=== PATIENT | female | born 1960 | race Caucasian/White ===

== ENCOUNTER 2018-12-19 14:54 | Emergency (ER) | payer MEDICARE, OTHER ==
[2018-12-19 15:42] LABS: BASOPHILS % (AUTO) 0.4 %; EOSINOPHILS # (AUTO) 0.1 10^3/uL (0.0-0.7); EOSINOPHILS % (AUTO) 1.6 %; HGB - HEMOGLOBIN 13.8 g/dL (12.0-16.0); LYMPHOCYTES # (AUTO) 3.1 10^3/uL (1.5-3.5); LYMPHOCYTES % (AUTO) 34.3 %; MEAN CORPUSCULAR HEMOGLOBIN 29.4 pg (27.0-31.0); MEAN CORPUSCULAR HGB CONC 33.3 g/dL (32.0-36.0); MEAN CORPUSCULAR VOLUME 88.4 fL (81.0-99.0); MEAN PLATELET VOLUME 10.7 fL (7.9-10.8); MONOCYTES # (AUTO) 0.4 10^3/uL (0.0-1.0); MONOCYTES % (AUTO) 4.2 %; NEUTROPHILS # (AUTO) 5.4 10^3/uL (1.5-6.6); NEUTROPHILS % (AUTO) 59.5 %; PLT - PLATELET COUNT 209 10^3/uL (130-450); RED BLOOD COUNT 4.69 10^6/uL (4.20-5.40); RED CELL DISTRIBUTION WIDTH 14.1 % (12.0-15.0)
[2018-12-19 15:43] LABS: ALBUMIN 4.6 g/dL (3.2-5.5); ALBUMIN/GLOBULIN RATIO 1.1 (1.0-2.2); BILIRUBIN,TOTAL 0.5 mg/dL (0.2-1.0); CALCIUM 9.4 mg/dL (8.5-10.3); CREATININE 0.6 mg/dL (0.4-1.0); TOTAL PROTEIN 8.8 g/dL (6.7-8.2)
--- NOTE | 2018-12-19 16:08 | ED Physician Documentation ---
PD HPI ABD PAIN - Stated complaint Stated Complaint: ABD PX - Chief complaint Chief Complaint: Abd Pain - History obtained from History obtained from: Patient - History of Present Illness Timing - onset: Enter time (1100), Today Timing - duration: Hours Timing - details: Gradual onset, Still present Quality: Sharp, Fullness/distended, Pain Location: All over / everywhere Radiation: Chest, Lower back Improved by: Laying still Worsened by: Moving, Breathing, Position, Palpation Associated symptoms: Nausea. No: Vomiting, Diarrhea, Constipation Similar symptoms before: Other (The pain is worse than appendix, diverticulitis and gallbladder and on par with kidney stone except that this hurts to move around.) Recently seen: Not recently seen - Additional information Additional information: 58-year-old female awoke this morning with what she thought was a severe gas pain she was into the bathroom and did not get relief of that pain is progressively worsened she has pain with any movement and with any palpation. She has some nausea she has not vomited. Review of Systems Constitutional: denies: Fever Eyes: denies: Decreased vision Ears: reports: Tinnitus/ringing. denies: Ear pain Nose: denies: Rhinorrhea / runny nose, Congestion Throat: denies: Sore throat Cardiac: denies: Chest pain / pressure, Palpitations Respiratory: denies: Dyspnea, Cough GI: reports: Abdominal Pain, Nausea, Vomiting. denies: Constipation, Diarrhea : denies: Dysuria, Frequency Skin: denies: Rash Musculoskeletal: denies: Neck pain, Back pain, Extremity pain Neurologic: denies: Generalized weakness, Focal weakness, Numbness PD PAST MEDICAL HISTORY - Past Medical History Cardiovascular: None Respiratory: None Endocrine/Autoimmune: None GI: Diverticulitis : None HEENT: None Psych: Depression, Anxiety, Post traumatic stress disorder Musculoskeletal: None Derm: None - Past Surgical History Past Surgical History: Yes General: Cholecystectomy, Appendectomy - Present Medications Home Medications: Ambulatory Orders Medication Instructions Recorded Confirmed Alprazolam [Xanax] 1 tab PO TID PRN 12/19/18 12/19/18 Ondansetron Odt [Zofran Odt] 2 tab PO TID PRN 12/19/18 12/19/18 Prazosin [Minipress] 1 tab PO QPM 12/19/18 12/19/18 Verapamil HCl [Verapamil ER] 1 tab PO OAW 12/19/18 12/19/18 Verapamil HCl [Verapamil ER] 1 tab PO QPM 12/19/18 12/19/18 oxyCODONE [Roxicodone] 1 tab PO TID PRN 12/19/18 12/19/18 - Allergies Allergies/Adverse Reactions: Allergies Allergy/AdvReac Type Severity Reaction Status Date / Time ampicillin Allergy Intermediate Rash Verified 12/19/18 15:02 - Social History Does the pt smoke?: No Smoking Status: Never smoker Does the pt drink ETOH?: Yes Does the pt have substance abuse?: No PD ED PE NORMAL - Vitals Vital signs reviewed: Yes (hypertensive ) - General General: Alert and oriented X 3, No acute distress, Well developed/nourished - HEENT HEENT: Atraumatic, PERRL, EOMI - Neck Neck: Supple, no meningeal sign, No bony TTP - Cardiac Cardiac: RRR, No murmur - Respiratory Respiratory: No respiratory distress, Clear bilaterally - Abdomen Abdomen: Soft, Other (obese with general tenderness with referred tenderness as well. ) - Back Back: No CVA TTP, No spinal TTP - Derm Derm: Normal color, Warm and dry, No rash - Extremities Extremities: No deformity, No edema - Neuro Neuro: Alert and oriented X 3, paper carrier 2-12 intact, No motor deficit, No sensory deficit, Normal speech Eye Opening: Spontaneous Motor: Obeys Commands Verbal: Oriented GCS Score: 15 - Psych Psych: Normal mood, Normal affect Results - Vitals Vitals: Vital Signs - 24 hr 12/19/18 15:00 Temperature 36.5 C Heart Rate 92 Respiratory 18 Rate Blood Pressure 161/97 H O2 Saturation 97 Oxygen O2 Source Room air - Labs Labs: Laboratory Tests 12/19/18 12/19/18 15:20 15:20 WBC 9.0 RBC 4.69 Hgb 13.8 Hct 41.4 MCV 88.4 MCH 29.4 MCHC 33.3 RDW 14.1 Plt Count 209 MPV 10.7 Neut # (Auto) 5.4 Lymph # (Auto) 3.1 [place] # (Auto) 0.4 Eos # (Auto) 0.1 Baso # (Auto) 0.0 Absolute Nucleated RBC 0.00 Nucleated RBC % 0.0 Sodium 142 Potassium 3.7 Chloride 104 Carbon Dioxide 24 Anion Gap 14.0 H BUN 15 Creatinine 0.6 Estimated GFR (MDRD) 103 Glucose 91 Calcium 9.4 Total Bilirubin 0.5 AST 44 H ALT 50 Alkaline Phosphatase 92 Total Protein 8.8 H Albumin 4.6 Globulin 4.2 Albumin/Globulin Ratio 1.1 Lipase 41 - Rads (name of study) CT abd/pel with Radiology: Prelim report reviewed (Impression: Mildly prominent air-filled colon ic loops, without distal obstruction.), EMP read indepedently, See rad report PD MEDICAL DECISION MAKING - ED course Complexity details: reviewed old records, reviewed results, re-evaluated patient, considered differential, d/w patient ED course: 58-year-old female with abdominal distention and pain has massive amounts of gas throughout the colon. Departure - Departure Disposition: 01 Home, Self Care Clinical Impression: Abdominal gas pain Condition: Stable Instructions: ED Gas Bloating Follow-Up: Luis F Bañuelos MD [Primary Care Provider] -
[2018-12-19] MEDS ORDERED: SODIUM CHLORIDE 0.9% 1,000 ML IV ONE (16:17)
[2018-12-19] MEDS ORDERED: HYDROmorphone 1 MG/ML CARPUJECT IVP STA (16:17)
[2018-12-19] MEDS ORDERED: ONDANSETRON 4 MG/2 ML VIAL IVP STA (16:17)
[2018-12-19] MEDS ORDERED: IOPAMIDOL-300 100 ML VIAL ONE (17:08)
[2018-12-19] MEDS ORDERED: IOPAMIDOL-300 100 ML VIAL IVP ONE (17:32)
--- NOTE | 2018-12-19 17:51 | CT Report ---
Reason: all over pain and distention. Procedure Date: 12/19/2018 Accession Number: [id number] / [id number] Procedure: CT - Abdomen/Pelvis W CPT Code: FULL RESULT: EXAM: CT ABDOMEN AND PELVIS EXAM DATE: 12/19/2018 05:03 PM. CLINICAL HISTORY: All over pain and distention. COMPARISONS: None. TECHNIQUE: Routine helical CT imaging was performed through the abdomen and pelvis. IV contrast: ISOVUE 300 100mL. Enteric contrast: No. Reconstructions: Coronal and sagittal. In accordance with CT protocol optimization, one or more of the following dose reduction techniques were utilized for this exam: automated exposure control, adjustment of mA and/or KV based on patient size, or use of iterative reconstructive technique. FINDINGS: Lung Bases: Unremarkable. Liver: Normal. No masses. Gallbladder/Bile Ducts: Status post cholecystectomy. Spleen: Normal. Pancreas: Normal. Adrenal Glands: Normal. Kidneys: Normal. No masses or hydronephrosis. Peritoneal Cavity/Bowel: Normal. No free fluid, free air or adenopathy. No masses or acute inflammatory process., Colon is mildly distended with air. The appendix is well visualized and normal. Pelvic Organs: Normal. The bladder and visualized pelvic organs are within normal limits. Vasculature: No aneurysms or other significant abnormality. Bones: No significant abnormality. Other: None. IMPRESSION: Mildly prominent air-filled colonic loops, without distal obstruction. RADIA
[2018-12-19] MEDS ORDERED: SIMETHICONE CHEW 80 MG TABLET PO STA (18:06)
[2018-12-19 18:12] VITALS: BP 119/80
== END 2018-12-19 18:15 | disposition home or self-care (01) ==
LOC: ED 14:54
DX: R14.1 Gas pain (principal)
CPT/HCPCS: 36415; 74177; 80053; 83690; 85025; 96361; 96374; 99282; 99283; A9270; J1170; Q9967

== ENCOUNTER 2020-04-13 10:19 | Emergency (ER) | payer MEDICARE ==
--- NOTE | 2020-04-13 10:27 | ED Physician Documentation ---
PD HPI CHEST PAIN - Stated complaint Stated Complaint: CHEST PRESSURE/L SHOULDER PX - History obtained from History obtained from: Patient - History of Present Illness Timing - onset: How many minutes ago (20-30), Today Timing - onset during: Rest Timing - duration: Minutes (20-30) Timing - details: Abrupt onset, Still present Quality: Pressure, Aching. No: Tearing, Stabbing Location: Left chest Radiation: Left upper extremity. No: Neck, Back Improved by: No: Rest Worsened by: No: Inspiration, Movement, Palpation Associated symptoms: No: Shortness of air, Diaphoresis, Nausea, Feeling faint / dizzy, Palpitations, Cough Similar symptoms before: No diagnosis (She has been having similar type symptoms intermittently without any pattern of exertion, eating, position over the last 4 to 5 weeks. They typically last just a couple of minutes. Today is was more prolonged and had a radiation to the shoulder and heaviness of the arm which concerned her) Recently seen: Not recently seen Review of Systems Constitutional: denies: Fever, Chills Nose: denies: Rhinorrhea / runny nose, Congestion Throat: denies: Sore throat Cardiac: reports: Chest pain / pressure. denies: Palpitations, Pedal edema, Calf pain Respiratory: denies: Cough, Wheezing GI: denies: Nausea, Vomiting, Diarrhea, Bloody / black stool Skin: denies: Rash, Lesions Neurologic: denies: Generalized weakness, Focal weakness, Numbness, Near syncope Endocrine: denies: Weight loss, Weight gain PD PAST MEDICAL HISTORY - Past Medical History Cardiovascular: None Respiratory: None Endocrine/Autoimmune: None GI: Diverticulitis : None HEENT: None Psych: Depression, Anxiety, Post traumatic stress disorder Musculoskeletal: None Derm: None - Past Surgical History Past Surgical History: Yes General: Cholecystectomy, Appendectomy - Present Medications Home Medications: Ambulatory Orders Medication Instructions Recorded Confirmed Alprazolam [Xanax] 1 tab PO TID PRN 12/19/18 12/19/18 Ondansetron Odt [Zofran Odt] 2 tab PO TID PRN 12/19/18 12/19/18 Prazosin [Minipress] 1 tab PO QPM 12/19/18 12/19/18 Verapamil HCl [Verapamil ER] 1 tab PO OAW 12/19/18 12/19/18 Verapamil HCl [Verapamil ER] 1 tab PO QPM 12/19/18 12/19/18 oxyCODONE [Roxicodone] 1 tab PO TID PRN 12/19/18 12/19/18 - Allergies Allergies/Adverse Reactions: Allergies Allergy/AdvReac Type Severity Reaction Status Date / Time ampicillin Allergy Intermediate Rash Verified 04/13/20 10:41 - Social History Does the pt smoke?: No Smoking Status: Never smoker Does the pt drink ETOH?: Yes Does the pt have substance abuse?: No - Immunizations Immunizations are current?: Yes - POLST Patient has POLST: No PD ED PE NORMAL - Vitals Vital signs reviewed: Yes - General General: Alert and oriented X 3, No acute distress, Well developed/nourished - HEENT HEENT: Pharynx benign - Neck Neck: Supple, no meningeal sign, No adenopathy - Cardiac Cardiac: RRR, No murmur - Respiratory Respiratory: Clear bilaterally - Abdomen Abdomen: Soft, Non tender - Back Back: No CVA TTP - Derm Derm: Normal color, Warm and dry - Extremities Extremities: No deformity, No tenderness to palpate, Normal ROM s pain, No edema, No calf tenderness / cord - Neuro Neuro: Alert and oriented X 3, No motor deficit, Normal speech Eye Opening: Spontaneous Motor: Obeys Commands Verbal: Oriented GCS Score: 15 Results - Vitals Vitals: Vital Signs - 24 hr 04/13/20 04/13/20 04/13/20 10:27 10:37 12:37 Temperature 36.4 C L Heart Rate 83 90 72 Respiratory 23 16 15 Rate Blood Pressure 134/74 H 114/69 100/51 L O2 Saturation 97 98 95 04/13/20 14:12 Temperature 36.4 C L Heart Rate 81 Respiratory 17 Rate Blood Pressure 108/67 O2 Saturation 99 Oxygen O2 Source Room air - EKG (time done) 10:31 Rate: Rate (enter#) (79) Rhythm: NSR [place]: Normal Intervals: Normal DC QRS: Normal Ischemia: Normal ST segments. No: ST elevation c/w ischemia, ST depression Compare to prior EKG: Old EKG unavailable - Labs Labs: Laboratory Tests 04/13/20 04/13/20 04/13/20 10:30 10:30 10:30 WBC 9.1 RBC 4.58 Hgb 13.8 Hct 41.9 MCV 91.5 MCH 30.1 MCHC 32.9 RDW 13.5 Plt Count 225 MPV 12.0 H Neut # (Auto) 5.0 Lymph # (Auto) 3.3 [place] # (Auto) 0.5 Eos # (Auto) 0.1 Baso # (Auto) 0.1 Absolute Nucleated RBC 0.00 Nucleated RBC % 0.0 Sodium 140 Potassium 3.9 Chloride 100 L Carbon Dioxide 20 L Anion Gap 20.0 H BUN 8 Creatinine 0.7 Estimated GFR (MDRD) 85 L Glucose 122 H Calcium 9.2 Total Bilirubin 1.2 H AST 35 ALT 36 Alkaline Phosphatase 75 Troponin I High Sens < 2.3 L B-Natriuretic Peptide Total Protein 8.0 Albumin 4.2 Globulin 3.8 Albumin/Globulin Ratio 1.1 Lipase 37 04/13/20 04/13/20 10:30 12:58 WBC RBC Hgb Hct MCV MCH MCHC RDW Plt Count MPV Neut # (Auto) Lymph # (Auto) [place] # (Auto) Eos # (Auto) Baso # (Auto) Absolute Nucleated RBC Nucleated RBC % Sodium Potassium Chloride Carbon Dioxide Anion Gap BUN Creatinine Estimated GFR (MDRD) Glucose Calcium Total Bilirubin AST ALT Alkaline Phosphatase Troponin I High Sens < 2.3 L B-Natriuretic Peptide 15 Total Protein Albumin Globulin Albumin/Globulin Ratio Lipase - Rads (name of study) chest xray Radiology: Prelim report reviewed (no acute process), See rad report PD MEDICAL DECISION MAKING - ED course Complexity details: reviewed results, re-evaluated patient, considered differential (Onset of chest discomfort radiating to the arm at rest today. EKG was normal. Initial enzymes and blood tests were normal as was x-ray. Repeat cardiac enzyme at 2-1/2 hours later was still normal. She has had non-exertion related pains for several weeks and no evidence for heart failure.), d/w patient Departure - Departure Disposition: 01 Home, Self Care Clinical Impression: Chest discomfort Clinical Impression: (Ruled Out): Myocardial infarction Condition: Stable Record reviewed to determine appropriate education?: Yes Instructions: ED Chest Pain Atypical Unkn Cause Follow-Up: Luis F Bañuelos MD [Primary Care Provider] - Comments: No signs of obvious cardio pulmonary cause for your pains. I would suggest some anti-inflammatory such as ibuprofen or naproxen 3 tablets twice daily with food for the next week. To that add Tylenol if needed for discomfort. Follow-up with your primary care regarding further evaluation. Discharge Date/Time: 04/13/20 14:15
[2020-04-13] MEDS ORDERED: MAG HYDROX/AL HYDROX/SIMETH 30 ML UDC PO STA (10:38)
[2020-04-13] MEDS ORDERED: ASPIRIN CHEW 81 MG TABLET PO STA (10:38)
[2020-04-13] MEDS ORDERED: LIDOCAINE VISCOUS 2% 15 ML UDC MM STA (10:38)
[2020-04-13 10:47] LABS: BASOPHILS # (AUTO) 0.1 10^3/uL (0.0-0.1); BASOPHILS % (AUTO) 0.6 %; EOSINOPHILS # (AUTO) 0.1 10^3/uL (0.0-0.7); HGB - HEMOGLOBIN 13.8 g/dL (12.0-16.0); LYMPHOCYTES # (AUTO) 3.3 10^3/uL (1.5-3.5); LYMPHOCYTES % (AUTO) 36.8 %; MEAN CORPUSCULAR HEMOGLOBIN 30.1 pg (27.0-31.0); MEAN CORPUSCULAR HGB CONC 32.9 g/dL (32.0-36.0); MEAN CORPUSCULAR VOLUME 91.5 fL (81.0-99.0); MONOCYTES # (AUTO) 0.5 10^3/uL (0.0-1.0); MONOCYTES % (AUTO) 5.7 %; NEUTROPHILS % (AUTO) 55.3 %; PLT - PLATELET COUNT 225 10^3/uL (130-450); RED BLOOD COUNT 4.58 10^6/uL (4.20-5.40); RED CELL DISTRIBUTION WIDTH 13.5 % (12.0-15.0); WHITE BLOOD COUNT 9.1 x10^3/uL (4.8-10.8)
[2020-04-13 11:02] LABS: ALBUMIN 4.2 g/dL (3.2-5.5); ALBUMIN/GLOBULIN RATIO 1.1 (1.0-2.2); BILIRUBIN,TOTAL 1.2 mg/dL (0.2-1.0); CALCIUM 9.2 mg/dL (8.5-10.3); CREATININE 0.7 mg/dL (0.4-1.0)
--- NOTE | 2020-04-13 12:01 | XRAY Report ---
PROCEDURE: Chest 1 View X-Ray INDICATIONS: Chest Pain TECHNIQUE: One view of the chest was acquired. COMPARISON: None FINDINGS: Surgical changes and devices: None. Lungs and pleura: No pleural effusions or pneumothorax. Lungs are clear. Mediastinum: Mediastinal contours appear normal. Heart size is normal. Bones and chest wall: No suspicious bony lesions. Overlying soft tissues appear unremarkable. IMPRESSION: No acute process. Reviewed by: Aram Morton MD on 04/13/2020 12:00 PM PDT Approved by: Aram Morton MD on 04/13/2020 12:00 PM PDT Station ID: [id number]
[2020-04-13] MEDS ORDERED: NAPROXEN 250 MG TABLET PO STA (13:52)
[2020-04-13 14:15] VITALS: BP 108/67
== END 2020-04-13 14:15 | disposition home or self-care (01) ==
LOC: ED 10:19
DX: R07.89 Other chest pain (principal)
CPT/HCPCS: 36415; 71045; 80053; 83690; 83880; 84484; 85025; 93005; 99284; A9270